=== PATIENT | female | born 1980 | race Caucasian/White ===

== ENCOUNTER 2016-11-08 15:01 | Emergency (ER) | payer OTHER ==
--- NOTE | 2016-11-08 15:44 | DIAGNOSTIC IMAGING REPORT ---
PROCEDURE: XR FOOT 3 VIEWS - LEFT INDICATION: TRAUMA/INJURY TECHNIQUE: Three views. COMPARISON: None. FINDINGS: There is soft tissue swelling over the dorsum of the foot. Osseous structures and joint spaces are normal. IMPRESSION: 1. Soft tissue swelling. Otherwise negative left foot.
--- NOTE | 2016-11-08 17:07 | ED ORDER SUMMARY ---
..... Patient: RAFFAELE SHAH OrderSheet [facility] VisitID: [id number] [address] [place] [address] 36y, F Registration Date/Time: 11/08/2016 ORDER SHEET Weight: 95.2 kg (stated) Allergies: Phenergan GENERAL ORDERS: Foot 3V Left Urgent (15:10 11/08/2016 EKoroleva P.A.-C) (15:20 LWhalen R.N.) MEDICATION ORDERS: Bupivacaine Injection 0.5 % (soln) (NOW, place at bedside, with syringes & needles) (15:10 11/08/2016 EKoroleva P.A.-C) (15:20 LWhalen R.N.) Percocet PO 5/325 mg (HIGH ALERT MEDICATION) (15:10 11/08/2016 EKoroleva P.A.-C) (15:20 LWhalen R.N.) Dilaudid IM 2 mg (HIGH ALERT MEDICATION, NOW) (16:23 11/08/2016 EKoroleva P.A.-C) (16:29 Umm R.N.) Zofran ODT PO 8 mg (NOW) (16:53 11/08/2016 EKoroleva P.A.-C) (Ack 16:55 Umm R.N.) (17:04 Umm R.N.) IV FLUIDS: ORDER SHEET NOTES: [Electronically signed by India Quick PCoreyACorey-C (18:57 11/08/2016)] [Electronically signed by Aixa Basurto R.N. (08:27 11/09/2016)] [Electronically locked/signed by Aixa Basurto R.N. (08:27 11/09/2016)]
--- NOTE | 2016-11-08 17:07 | ED CLINICAL REPORT ---
Clinical Report - Physicians/Mid Levels [facility] [address], [place] [address] 11/08/2016 15:02 [id number] Ar[facility]- By private vehicle. Historian- patient. HISTORY OF PRESENT ILLNESS Chief Complaint: Injury to the left foot. The injury happened just prior to arrival. The patient sustained a direct blow. (Patient while walking sustaining injury to her left foot, interdigitally, sustaining injury with a you would being embedded into her skin. Reports pain with ambulating. Reports mild bleeding of the time. Incident occurred just prior to arrival. She was tetanus musician up-to-date. NO prior injury to the area.). REVIEW OF SYSTEMS The patient complains of pain on weight bearing. She has had swelling. All systems otherwise negative, except as recorded above. PAST HISTORY The patient has not had a prior injury to the same area. Tetanus immunization status is up-to-date. Problems: Migraines . Anxiety Reaction. Additional Surgeries: Adenoidectomy. Exploratory laparotomy. Lithotripsy. Right shoulder . Tonsillectomy. Medications: Percocet Oral. CBD OIL. None. Allergies: Phenergan. SOCIAL HISTORY Never smoker. Alcohol use. History of drug use: marijuana. PHYSICAL EXAM Appearance: Anxious. Appears to be in pain. Patient in apparent distress. Head: Head atraumatic. CVS: Normal heart rate and rhythm. Heart sounds normal. Respiratory: No respiratory distress. Skin: Skin warm. Extremities: Left foot web space. (In the webspace between the third and fourth digit, there is an opening a laceration foreign body protruding, proximal to suction the webspace areas swallowing and tenderness and mild ecchymosis present. Good distal sensation of the digit is presentof the third and fourth and range of motion.). Extremities otherwise negative. Gait: Limping gait. Neuro, Vascular and Tendons: Vascular status intact. Motor intact. Neuro: Oriented X 3. LABS, X-RAYS, AND EKG Lt Foot X-ray: (IMPRESSION: 1. Soft tissue swelling. Otherwise negative left foot. Electronically Final signed by:Guanako Downing MD 11/08/2016 3:39:24 PM). PROGRESS AND PROCEDURES Course of Care: After opening and retracting the skin of the foreign object intrusion site, a large stick was removed, and appears to have wholly been removed, has significant improvement of symptoms. There is approximately 4-5 cm in length. Patient with no signs of complications secondary to sludge. Patient able to ambulate well. patient will heal by secondary intentions. No signs of osseous involvement. Patient started on antibiotics. No signs of neurovascular or tendon compromise. Good distal range of motion and sensation. Patient is stable. Patient/family counseled. Disposition: Discharged. Condition: good. CLINICAL IMPRESSION Removal of wooden soft tissue foreign body. Puncture wound and laceration present (Left inter-digit 3rd/4th). INSTRUCTIONS Protect wound and keep wound area clean. Apply bacitracin twice daily. Elevate affected areas above chest level. Prescription Medications: Zofran (orally disintegrating tablets) 4 mg: take 1 orally every 6 hours as needed for nausea. Dispense ten (10). No refill. Substitution is permissible. Cephalexin 500 mg: take 1 capsule orally every 8 hours for 7 days. No refill. Motrin 800 mg tablets: take 1 tablet orally every 6 hours for 5 days, as needed for pain. Dispense fifteen (15). No refill. Substitution is permissible. Percocet 5 mg/325 mg: take 1 tablet orally every 6 hours as needed for pain. Dispense ten (10). Substitution is permissible. OTC Medications: Take OTC medications according to label instructions. Available over the counter. Acetaminophen (available over the counter): take according to label instructions. Motrin (available over the counter): take according to label instructions. Follow-up with: Kris Queen DPM, Podiatry, , [facility], [address] [place] [address], [address], [place] [address] Follow up. Call for the next available appointment. (Electronically signed by India Quick P.A.-C 11/08/2016 18:57)
--- NOTE | 2016-11-08 17:07 | ED ORDER SUMMARY ---
..... Patient: RAFFAELE SHAH OrderSheet [facility] VisitID: [id number] [address] [place] [address] 36y, F Registration Date/Time: 11/08/2016 ORDER SHEET Weight: 95.2 kg (stated) Allergies: Phenergan GENERAL ORDERS: Foot 3V Left Urgent (15:10 11/08/2016 EKoroleva P.A.-C) (15:20 LWhalen R.N.) MEDICATION ORDERS: Bupivacaine Injection 0.5 % (soln) (NOW, place at bedside, with syringes & needles) (15:10 11/08/2016 EKoroleva P.A.-C) (15:20 LWhalen R.N.) Percocet PO 5/325 mg (HIGH ALERT MEDICATION) (15:10 11/08/2016 EKoroleva P.A.-C) (15:20 LWhalen R.N.) Dilaudid IM 2 mg (HIGH ALERT MEDICATION, NOW) (16:23 11/08/2016 EKoroleva P.A.-C) (16:29 Umm R.N.) Zofran ODT PO 8 mg (NOW) (16:53 11/08/2016 EKoroleva P.A.-C) (Ack 16:55 Umm R.N.) (17:04 Umm R.N.) IV FLUIDS: ORDER SHEET NOTES: [Electronically signed by India Quick PCoreyACorey-C (18:57 11/08/2016)] [Electronically signed by Aixa Basurto R.N. (08:27 11/09/2016)] [Electronically locked/signed by Aixa Basurto R.N. (08:27 11/09/2016)]
--- NOTE | 2016-11-08 17:07 | ED NURSING NOTES ---
Clinical Report - Nurses [facility] [address] [place] [address] 11/08/2016 15:02 [id number] Triage time 15:Nov 08 2016. Acuity: LEVEL 4. Chief Complaint: INJURY TO LEFT FOOT. JIE COMA SCORE: [place] Coma Scale: 15- eyes open spontaneously (4); best verbal response- oriented x 4 (5); best motor response- obeys commands (6). --15:16 Aixa Basurto R.N. 15:11 11/08/16. BP: 133/72. HR: 98. RR: 18. O2 saturation: 100%. Temp: 98.4 F. Pain level now 10/10. --15:16 Aixa Basurto R.N. Acuity: LEVEL 3. JIE COMA SCORE: Jie Coma Scale: 15- eyes open spontaneously (4); best verbal response- oriented x 4 (5); best motor response- obeys commands (6). --15:26 Aixa Basurto R.N. Weight: 95.2 kg stated. Height/Length: 70 inches Per Patient. BMI: 30.1. --15:15 Aixa Basurto R.N. Medications None. --15:13 Aixa Basurto R.N. CBD OIL. --15:14 Aixa Basurto R.N. Percocet Oral. --15:15 Aixa Basurto R.N. Allergies Phenergan. --15:13 Aixa Basurto R.N. History Arrived by private vehicle. Historian: patient. Accompanied by family. This occurred just prior to arrival. Occurred at a park. ( Was walking the dog and a stick went between 3 and 4th toes.). Treatment GRADE RECORDER: Ice. --15:16 Aixa Basurto R.N. PAST MEDICAL HX: No history of diabetes mellitus, hypertension, heart disease or lung disease. Tetanus status: up-to-date. Immunizations: up-to-date. Uses an intrauterine device. SOCIAL HX: Never smoker. Occasional alcohol use. History of drug use: marijuana. SELF HARM ASSESSMENT: A self harm assessment was performed. The patient answered "no" to the question "Have you recently felt down, depressed, or hopeless?" and "Do you have thoughts of harming or killing yourself?". FALL RISK ASSESSMENT: Fall risk assessment completed. No fall risk identified. NUTRITIONAL RISK ASSESSMENT: The nutritional risk assessment revealed no deficiencies. FUNCTIONAL ASSESSMENT: Functional assessment: no impairments noted. LEARNING NEEDS ASSESSMENT: The learning needs assessment revealed no barriers. ABUSE ASSESSMENT: Abuse assessment: (yes) The patient was asked "Do you feel safe in your home?". SKIN INTEGRITY ASSESSMENT: Skin integrity risk assessment completed. No skin integrity risk identified. --15:26 Aixa Basruto R.N. PROBLEMS: Migraines . Anxiety Reaction. --15:15 Aixa Basurto R.N. ADDITIONAL SURGERIES: Adenoidectomy. Exploratory laparotomy. Lithotripsy. Right shoulder . Tonsillectomy. --15:15 Aixa Basurto R.N. Interventions ID and allergy band on patient. --15:16 Aixa Basurto R.N. PHYSICAL ASSESSMENT To room via wheelchair. GENERAL / NEURO / PSYCH: Oriented X 4. Alert. Appears in no acute distress. EXTREMITIES: Capillary refill is less than 2 seconds in the extremities. Extremity pulses are within normal limits. Extremities exhibit normal ROM. Normal gait. Left foot: tenderness, swelling, erythema and single puncture wound of the fourth toe. Limited weight bearing secondary to pain. SKIN: Skin is warm and dry. --15:48 Aixa Basurto R.N. NURSING PROGRESS NOTES 15:20 11/08/2016 Percocet (Oxycodone-Acetaminophen) PO 5/325 mg Tablets 1 tab given. Allergies verified, confirmed 5 rights and sedative warning given to the patient. --15:20 Aixa Basurto R.N. 15:20 11/08/2016 Bupivacaine Injection Injectable 0.5 % given. --15:20 Aixa Basurto R.N. The initial plan of care for this patient includes an assessment with efforts to address patient positioning, appropriate ambient lighting and comfortable environmental temperature; impairment of the integumentary system. Patient gowned. Reassurance given. Call light placed in reach. Side rails up x 1. Bed placed in lowest position. Brakes of bed on. --15:49 Aixa Basurto R.N. 16:24 11/08/2016 Dilaudid (HYDROmorphone HCl PF) IM 2 mg given. Given in the right deltoid. Allergies verified, confirmed 5 rights and sedative warning given to the patient. --16:29 Susannah Gallego R.N. 17:03 assist with foreign body removal. --17:04 Susannah Gallego R.N. 16:59 11/08/2016 Zofran ODT (Ondansetron) PO Oral Disintegrating Tablets 8 mg given. Allergies verified and confirmed 5 rights. --17:04 Susannah Gallego R.N. 17:04. The patient is resting quietly. Overall patient status is improved- she states feels the same. GENERAL / NEURO / PSYCH: Alert. Oriented X 4. RESPIRATORY: No respiratory distress. SKIN: Skin is warm and dry. --17:05 Susannah Gallego R.N. DISPOSITION / DISCHARGE Condition at departure: improved. No learning barriers present. Discharge instructions provided and reviewed with the patient. Reviewed warnings. Reviewed medication(s). Treatments reviewed. Reviewed referrals. Patient verbalized understanding. Written instructions provided in Iraqi. The patient was discharged home and accompanied by spouse. She left the Emergency Department in a wheelchair and via private vehicle. Spouse driving. ( [employer] completed dressing change.). --17:31 Aixa Basurto R.N. 17:30 11/08/16. BP: 111/70. HR: 98. RR: 18. O2 saturation: 97%. Temp: 98.4 F. Pain level now 07/23. --17:31 Aixa Basurto R.N. ( Patient waiting for will call out when he arrives to be wheeled.). --17:45 Aixa Basurto R.N. Departure time: 18:00 Nov 08 2016. --18:00 Aixa Basurto R.N. Locked/Released at 11/09/2016 8:27 by Aixa Basurto R.N.
--- NOTE | 2016-11-08 17:07 | ED CLINICAL REPORT ---
Clinical Report - Physicians/Mid Levels [facility] [address] [address] 11/08/2016 15:02 Patient: [facility]AH [id number] Arrived- By private vehicle. Historian- patient. HISTORY OF PRESENT ILLNESS Chief Complaint: Injury to the left foot. The injury happened just prior to arrival. The patient sustained a direct blow. (Patient while walking sustaining injury to her left foot, interdigitally, sustaining injury with a you would being embedded into her skin. Reports pain with ambulating. Reports mild bleeding of the time. Incident occurred just prior to arrival. She was tetanus musician up-to-date. NO prior injury to the area.). REVIEW OF SYSTEMS The patient complains of pain on weight bearing. She has had swelling. All systems otherwise negative, except as recorded above. PAST HISTORY The patient has not had a prior injury to the same area. Tetanus immunization status is up-to-date. Problems: Migraines . Anxiety Reaction. Additional Surgeries: Adenoidectomy. Exploratory laparotomy. Lithotripsy. Right shoulder . Tonsillectomy. Medications: Percocet Oral. CBD OIL. None. Allergies: Phenergan. SOCIAL HISTORY Never smoker. Alcohol use. History of drug use: marijuana. PHYSICAL EXAM Appearance: Anxious. Appears to be in pain. Patient in apparent distress. Head: Head atraumatic. CVS: Normal heart rate and rhythm. Heart sounds normal. Respiratory: No respiratory distress. Skin: Skin warm. Extremities: Left foot web space. (In the webspace between the third and fourth digit, there is an opening a laceration foreign body protruding, proximal to suction the webspace areas swallowing and tenderness and mild ecchymosis present. Good distal sensation of the digit is presentof the third and fourth and range of motion.). Extremities otherwise negative. Gait: Limping gait. Neuro, Vascular and Tendons: Vascular status intact. Motor intact. Neuro: Oriented X 3. LABS, X-RAYS, AND EKG Lt Foot X-ray: (IMPRESSION: 1. Soft tissue swelling. Otherwise negative left foot. Electronically Final signed by:Guanako Downing MD 11/08/2016 3:39:24 PM). PROGRESS AND PROCEDURES Course of Care: After opening and retracting the skin of the foreign object intrusion site, a large stick was removed, and appears to have wholly been removed, has significant improvement of symptoms. There is approximately 4-5 cm in length. Patient with no signs of complications secondary to sludge. Patient able to ambulate well. patient will heal by secondary intentions. No signs of osseous involvement. Patient started on antibiotics. No signs of neurovascular or tendon compromise. Good distal range of motion and sensation. Patient is stable. Patient/family counseled. Disposition: Discharged. Condition: good. CLINICAL IMPRESSION Removal of wooden soft tissue foreign body. Puncture wound and laceration present (Left inter-digit 3rd/4th). INSTRUCTIONS Protect wound and keep wound area clean. Apply bacitracin twice daily. Elevate affected areas above chest level. Prescription Medications: Zofran (orally disintegrating tablets) 4 mg: take 1 orally every 6 hours as needed for nausea. Dispense ten (10). No refill. Substitution is permissible. Cephalexin 500 mg: take 1 capsule orally every 8 hours for 7 days. No refill. Motrin 800 mg tablets: take 1 tablet orally every 6 hours for 5 days, as needed for pain. Dispense fifteen (15). No refill. Substitution is permissible. Percocet 5 mg/325 mg: take 1 tablet orally every 6 hours as needed for pain. Dispense ten (10). Substitution is permissible. OTC Medications: Take OTC medications according to label instructions. Available over the counter. Acetaminophen (available over the counter): take according to label instructions. Motrin (available over the counter): take according to label instructions. Follow-up with: Kris Queen DPM, Podiatry, , [facility], [address] [place] [address], [address], [place] [address] Follow up. Call for the next available appointment. (Electronically signed by India Quick P.A.-C 11/08/2016 18:57)
--- NOTE | 2016-11-08 17:07 | ED NURSING NOTES ---
Clinical Report - Nurses [facility] [address] [place] [address] 11/08/2016 15:02 [id number] Triage time 15:Nov 08 2016. Acuity: LEVEL 4. Chief Complaint: INJURY TO LEFT FOOT. JIE COMA SCORE: [place] Coma Scale: 15- eyes open spontaneously (4); best verbal response- oriented x 4 (5); best motor response- obeys commands (6). --15:16 Aixa Basurto R.N. 15:11 11/08/16. BP: 133/72. HR: 98. RR: 18. O2 saturation: 100%. Temp: 98.4 F. Pain level now 10/10. --15:16 Aixa Basurto R.N. Acuity: LEVEL 3. JIE COMA SCORE: Jie Coma Scale: 15- eyes open spontaneously (4); best verbal response- oriented x 4 (5); best motor response- obeys commands (6). --15:26 Aixa Basurto R.N. Weight: 95.2 kg stated. Height/Length: 70 inches Per Patient. BMI: 30.1. --15:15 Aixa Basurto R.N. Medications None. --15:13 Aixa Basurto R.N. CBD OIL. --15:14 Aixa Basurto R.N. Percocet Oral. --15:15 Aixa Basurto R.N. Allergies Phenergan. --15:13 Aixa Basurto R.N. History Arrived by private vehicle. Historian: patient. Accompanied by family. This occurred just prior to arrival. Occurred at a park. ( Was walking the dog and a stick went between 3 and 4th toes.). Treatment [employer]: Ice. --15:16 Aixa Basurto R.N. PAST MEDICAL HX: No history of diabetes mellitus, hypertension, heart disease or lung disease. Tetanus status: up-to-date. Immunizations: up-to-date. Uses an intrauterine device. SOCIAL HX: Never smoker. Occasional alcohol use. History of drug use: marijuana. SELF HARM ASSESSMENT: A self harm assessment was performed. The patient answered "no" to the question "Have you recently felt down, depressed, or hopeless?" and "Do you have thoughts of harming or killing yourself?". FALL RISK ASSESSMENT: Fall risk assessment completed. No fall risk identified. NUTRITIONAL RISK ASSESSMENT: The nutritional risk assessment revealed no deficiencies. FUNCTIONAL ASSESSMENT: Functional assessment: no impairments noted. LEARNING NEEDS ASSESSMENT: The learning needs assessment revealed no barriers. ABUSE ASSESSMENT: Abuse assessment: (yes) The patient was asked "Do you feel safe in your home?". SKIN INTEGRITY ASSESSMENT: Skin integrity risk assessment completed. No skin integrity risk identified. --15:26 Aixa Basurto R.N. PROBLEMS: Migraines . Anxiety Reaction. --15:15 Aixa Basurto R.N. ADDITIONAL SURGERIES: Adenoidectomy. Exploratory laparotomy. Lithotripsy. Right shoulder . Tonsillectomy. --15:15 Aixa Basurto R.N. Interventions ID and allergy band on patient. --15:16 Aixa Basurto R.N. PHYSICAL ASSESSMENT To room via wheelchair. GENERAL / NEURO / PSYCH: Oriented X 4. Alert. Appears in no acute distress. EXTREMITIES: Capillary refill is less than 2 seconds in the extremities. Extremity pulses are within normal limits. Extremities exhibit normal ROM. Normal gait. Left foot: tenderness, swelling, erythema and single puncture wound of the fourth toe. Limited weight bearing secondary to pain. SKIN: Skin is warm and dry. --15:48 Aixa Basurto R.N. NURSING PROGRESS NOTES 15:20 11/08/2016 Percocet (Oxycodone-Acetaminophen) PO 5/325 mg Tablets 1 tab given. Allergies verified, confirmed 5 rights and sedative warning given to the patient. --15:20 Aixa Basurto R.N. 15:20 11/08/2016 Bupivacaine Injection Injectable 0.5 % given. --15:20 Aixa Basurto R.N. The initial plan of care for this patient includes an assessment with efforts to address patient positioning, appropriate ambient lighting and comfortable environmental temperature; impairment of the integumentary system. Patient gowned. Reassurance given. Call light placed in reach. Side rails up x 1. Bed placed in lowest position. Brakes of bed on. --15:49 Aixa Basurto R.N. 16:24 11/08/2016 Dilaudid (HYDROmorphone HCl PF) IM 2 mg given. Given in the right deltoid. Allergies verified, confirmed 5 rights and sedative warning given to the patient. --16:29 Susannah Gallego R.N. 17:03 assist with foreign body removal. --17:04 Susannah Gallego R.N. 16:59 11/08/2016 Zofran ODT (Ondansetron) PO Oral Disintegrating Tablets 8 mg given. Allergies verified and confirmed 5 rights. --17:04 Susannah Gallego R.N. 17:04. The patient is resting quietly. Overall patient status is improved- she states feels the same. GENERAL / NEURO / PSYCH: Alert. Oriented X 4. RESPIRATORY: No respiratory distress. SKIN: Skin is warm and dry. --17:05 Susannah Gallego R.N. DISPOSITION / DISCHARGE Condition at departure: improved. No learning barriers present. Discharge instructions provided and reviewed with the patient. Reviewed warnings. Reviewed medication(s). Treatments reviewed. Reviewed referrals. Patient verbalized understanding. Written instructions provided in Omani. The patient was discharged home and accompanied by spouse. She left the Emergency Department in a wheelchair and via private vehicle. Spouse driving. ( [employer] completed dressing change.). --17:31 Aixa Basurto R.N. 17:30 11/08/16. BP: 111/70. HR: 98. RR: 18. O2 saturation: 97%. Temp: 98.4 F. Pain level now 07/23. --17:31 Aixa Basurto R.N. ( Patient waiting for will call out when he arrives to be wheeled.). --17:45 Aixa Basurto R.N. Departure time: 18:00 Nov 08 2016. --18:00 Aixa Basurto R.N. Locked/Released at 11/09/2016 8:27 by Aixa Basurto R.N.
--- NOTE | 2016-11-09 08:28 | ED MAR SUMMARY ---
..... Medication Administration Record [facility] [address] [place] [address] Patient: RAFFAELE SHAH Visit ID: [id number] 36y, F Weight: 95.2 kg Height/Length: 70 in BMI: 30.1 ALLERGIES: Phenergan Given 15:20 11/08/2016 Aixa Basurto R.N. Medication Administered: BUPIVACAINE [INJECTION], Dose: 0.5 % Injectable Injection. Medication Ordered: Bupivacaine Injection 0.5 % (soln) (NOW, place at bedside, with syringes & needles). Given 15:20 11/08/2016 Aixa Basurto R.N. Medication Administered: PERCOCET [PO] (OXYCODONE-ACETAMINOPHEN), Dose: 1 tab 5/325 mg Tablets PO. Medication Ordered: Percocet PO 5/325 mg (HIGH ALERT MEDICATION). Given 16:24 11/08/2016 Susannah Gallego R.N. Medication Administered: DILAUDID [IM] (HYDROMORPHONE HCL PF), Dose: 2 mg IM. Medication Ordered: Dilaudid IM 2 mg (HIGH ALERT MEDICATION, NOW). Given 16:59 11/08/2016 Susannah Gallego R.N. Medication Administered: ZOFRAN ODT [PO] (ONDANSETRON), Dose: 8 mg Oral Disintegrating Tablets PO. Medication Ordered: Zofran ODT PO 8 mg (NOW).
--- NOTE | 2016-11-09 08:28 | ED MED RECONCILIATION SUMMARY ---
Patient: RAFFAELE SHAH Medication Reconciliation Report [facility] VisitID: [id number] [place] [address] 36y, F Registration Date/Time: 11/08/2016 Weight: 95.2 kg Height/Length: 70 in. BMI: 30.1 ALLERGIES: Phenergan The patient's Home Medications are listed below: THE FOLLOWING MEDICATIONS NEED TO BE RECONCILED: CBD OIL Percocet Oral The source(s) of the original Home Medication information: Not obtained. The following Medications were given to the patient in the Emergency Department: Percocet [PO] PO 1 tab, administered: 11/08/2016 3:20:00 PM Bupivacaine [Injection] Injection 0.5 %, administered: 11/08/2016 3:20:00 PM Dilaudid [IM] IM 2 mg, administered: 11/08/2016 4:24:00 PM Zofran ODT [PO] PO 8 mg, administered: 11/08/2016 4:59:00 PM The following Medications were prescribed to the patient: Take OTC medications according to label instructions. Available over the counter. -- Koroleva, [place], P.A.-C Acetaminophen (available over the counter): take according to label instructions. -- Kor[facility]va, [place], P.A.-C Motrin (available over the counter): take according to label instructions. -- Koroleva, Nidia, P.A.-C Zofran (orally disintegrating tablets) 4 mg: take 1 orally every 6 hours as needed for nausea. Dispense ten (10). No refill. Substitution is permissible. -- Koroleva, [place], P.A.-C Cephalexin 500 mg: take 1 capsule orally every 8 hours for 7 days. No refill. -- Koroleva, [place], P.A.-C Motrin 800 mg tablets: take 1 tablet orally every 6 hours for 5 days, as needed for pain. Dispense fifteen (15). No refill. Substitution is permissible. -- Koroleva, [place], P.A.-C Percocet 5 mg/325 mg: take 1 tablet orally every 6 hours as needed for pain. Dispense ten (10). Substitution is permissible. -- [place] Quick P.A.-C
--- NOTE | 2016-11-09 08:28 | ED DISCHARGE INSTRUCTIONS ---
Patient: RAFFAELE SHAH General Instructions [facility] VisitID: [id number] [place], [place] [address] 36y, F Registration Date/Time: 11/08/2016 Removal of wooden soft tissue foreign body. Puncture wound and laceration present (Left inter-digit 3rd/4th). INSTRUCTIONS Protect wound and keep wound area clean. Apply bacitracin twice daily. Elevate affected areas above chest level. Prescription Medications: Zofran (orally disintegrating tablets) 4 mg: take 1 orally every 6 hours as needed for nausea. Dispense ten (10). No refill. Substitution is permissible. Cephalexin 500 mg: take 1 capsule orally every 8 hours for 7 days. No refill. Motrin 800 mg tablets: take 1 tablet orally every 6 hours for 5 days, as needed for pain. Dispense fifteen (15). No refill. Substitution is permissible. Percocet 5 mg/325 mg: take 1 tablet orally every 6 hours as needed for pain. Dispense ten (10). Substitution is permissible. OTC Medications: Take OTC medications according to label instructions. Available over the counter. Acetaminophen (available over the counter): take according to label instructions. Motrin (available over the counter): take according to label instructions. Follow-up with: Kris Queen DPM, Podiatry, , [facility], [address] [place] [address], [address] [address] Follow up. Call for the next available appointment. ADDITIONAL INFORMATION Foreign ObjectUnder The Skin, Removed An object has been removed from under your skin. Although care was taken to remove all particles present, there is always a chance that a small piece may have been left behind. Very small particles that remain under the skin usually cause no problem and need no further treatment. Home care The following guidelines will help you care for your wound at home: Keep the wound clean and dry. If a bandage was applied and it becomes wet or dirty, replace it. Otherwise, leave it in place for the first 24 hours, then change it once a day or as directed. Ifsutureswere used, clean the wound daily: After removing the bandage, wash the area with soap and water. After cleaning, apply a thin layer of antibiotic ointment. This will keep the wound clean and make it easier to remove the stitches. Reapply the bandage. You may shower as usual after the first 24 hours, but do not soak the area in water (no baths or swimming) until the sutures are removed. If asurgical tape closureswere used, keep the area clean and dry. If it becomes wet, blot it dry with a towel. You may use acetaminophen or ibuprofen to control pain, unless another pain medicine was prescribed.If you have chronic liver or kidney disease or ever had a stomach ulcer or GI bleeding, talk with your doctor before using these medicines. Follow-up care Most skin wounds heal within ten days. However, there is an increased risk of infection if there is any particle remaining under the skin. Therefore, check the wound daily for the signs listed below. Stitches should be removed within 714 days. If surgical tape closures were used, remove them after seven days unless told otherwise. Note:Any X-rays taken will be reviewed by a radiologist. You will be notified if there are new findings that may affect your care. When to seek medical care Get prompt medical attention if any of the following occur: Increasing pain in the wound Redness, swelling or pus coming from the wound Fever of 100.4F (38C) or higher, or as directed by your health care provider Ondansetron Hydrochloride Oral tablet What is this medicine? ONDANSETRON (on OJ se juan) is used to treat nausea and vomiting caused by chemotherapy. It is also used to prevent or treat nausea and vomiting after surgery. How should I use this medicine? Take this medicine by mouth with a glass of water. Follow the directions on your prescription label. Take your doses at regular intervals. Do not take your medicine more often than directed. Talk to your tankerman regarding the use of this medicine in children. Special care may be needed. What side effects may I notice from receiving this medicine? Side effects that you should report to your doctor or health child care supervisor as soon as possible: allergic reactions like skin rash, itching or hives, swelling of the face, lips or tongue breathing problems dizziness fast or irregular heartbeat feeling faint or lightheaded, falls fever and chills swelling of the hands or feet tightness in the chest Side effects that usually do not require medical attention (report to your doctor or health child care supervisor if they continue or are bothersome): constipation or diarrhea headache What may interact with this medicine? Do not take this medicine with any of the following medications: -apomorphine -cisapride -dofetilide -dronedarone -pimozide -thioridazine -ziprasidone This medicine may also interact with the following medications: -carbamazepine -phenytoin -rifampicin -tramadol -other medicines that prolong the QT interval (cause an abnormal heart rhythm) What if I miss a dose? If you miss a dose, take it as soon as you can. If it is almost time for your next dose, take only that dose. Do not take double or extra doses. Where should I keep my medicine? Keep out of the reach of children. Store between 2 and 30 degrees C (36 and 86 degrees F). Throw away any unused medicine after the expiration date. What should I tell my health care provider before I take this medicine? They need to know if you have any of these conditions: heart disease history of irregular heartbeat liver disease low levels of magnesium or potassium in the blood an unusual or allergic reaction to ondansetron, granisetron, other medicines, foods, dyes, or preservatives or trying to get breast-feeding What should I watch for while using this medicine? Check with your doctor or health child care supervisor right away if you have any sign of an allergic reaction. Cephalexin Monohydrate Oral tablet What is this medicine? CEPHALEXIN (sef a RODGER in) is a cephalosporin antibiotic. It is used to treat certain kinds of bacterial infections It will not work for colds, flu, or other viral infections. How should I use this medicine? Take this medicine by mouth with a full glass of water. Follow the directions on the prescription label. This medicine can be taken with or without food. Take your medicine at regular intervals. Do not take your medicine more often than directed. Take all of your medicine as directed even if you think you are better. Do not skip doses or stop your medicine early. Talk to your tankerman regarding the use of this medicine in children. While this drug may be prescribed for selected conditions, precautions do apply. What side effects may I notice from receiving this medicine? Side effects that you should report to your doctor or health child care supervisor as soon as possible: allergic reactions like skin rash, itching or hives, swelling of the face, lips, or tongue breathing problems pain or trouble passing urine redness, blistering, peeling or loosening of the skin, including inside the mouth severe or watery diarrhea unusually weak or tired yellowing of the eyes, skin Side effects that usually do not require medical attention (report to your doctor or health child care supervisor if they continue or are bothersome): gas or heartburn genital or anal irritation headache joint or muscle pain nausea, vomiting What may interact with this medicine? probenecid some other antibiotics What if I miss a dose? If you miss a dose, take it as soon as you can. If it is almost time for your next dose, take only that dose. Do not take double or extra doses. There should be at least 4 to 6 hours between doses. Where should I keep my medicine? Keep out of the reach of children. Store at room temperature between 59 and 86 degrees F (15 and 30 degrees C). Throw away any unused medicine after the expiration date. What should I tell my health care provider before I take this medicine? They need to know if you have any of these conditions: kidney disease stomach or intestine problems, especially colitis an unusual or allergic reaction to cephalexin, other cephalosporins, penicillins, other antibiotics, medicines, foods, dyes or preservatives or trying to get breast-feeding What should I watch for while using this medicine? Tell your doctor or health child care supervisor if your symptoms do not begin to improve in a few days. Do not treat diarrhea with over the counter products. Contact your doctor if you have diarrhea that lasts more than 2 days or if it is severe and watery. If you have diabetes, you may get a false-positive result for sugar in your urine. Check with your doctor or health child care supervisor. Oxycodone Hydrochloride, Acetaminophen Oral tablet What is this medicine? ACETAMINOPHEN; OXYCODONE (a set a OTONIEL aziza fen; ox i KOE done) is a pain reliever. It is used to treat mild to moderate pain. How should I use this medicine? Take this medicine by mouth with a full glass of water. Follow the directions on the prescription label. Take your medicine at regular intervals. Do not take your medicine more often than directed. Talk to your tankerman regarding the use of this medicine in children. Special care may be needed. Patients over 65 years old may have a stronger reaction and need a smaller dose. What side effects may I notice from receiving this medicine? Side effects that you should report to your doctor or health child care supervisor as soon as possible: allergic reactions like skin rash, itching or hives, swelling of the face, lips, or tongue breathing difficulties, wheezing confusion light headedness or fainting spells severe stomach pain yellowing of the skin or the whites of the eyes Side effects that usually do not require medical attention (report to your doctor or health child care supervisor if they continue or are bothersome): dizziness drowsiness nausea vomiting What may interact with this medicine? alcohol antihistamines barbiturates like amobarbital, butalbital, butabarbital, methohexital, pentobarbital, phenobarbital, thiopental, and secobarbital benztropine drugs for bladder problems like solifenacin, trospium, oxybutynin, tolterodine, hyoscyamine, and methscopolamine drugs for breathing problems like ipratropium and tiotropium drugs for certain stomach or intestine problems like propantheline, homatropine methylbromide, glycopyrrolate, atropine, belladonna, and dicyclomine general anesthetics like etomidate, ketamine, nitrous oxide, propofol, desflurane, enflurane, halothane, isoflurane, and sevoflurane medicines for depression, anxiety, or psychotic disturbances medicines for sleep muscle relaxants naltrexone narcotic medicines (opiates) for pain phenothiazines like perphenazine, thioridazine, chlorpromazine, mesoridazine, fluphenazine, prochlorperazine, promazine, and trifluoperazine scopolamine tramadol trihexyphenidyl What if I miss a dose? If you miss a dose, take it as soon as you can. If it is almost time for your next dose, take only that dose. Do not take double or extra doses. Where should I keep my medicine? Keep out of the reach of children. This medicine can be abused. Keep your medicine in a safe place to protect it from theft. Do not share this medicine with anyone. Selling or giving away this medicine is dangerous and against the law. Store at room temperature between 20 and 25 degrees C (68 and 77 degrees F). Keep container tightly closed. Protect from light. This medicine may cause accidental overdose and if it is taken by other adults, children, or pets. Flush any unused medicine down the toilet to reduce the chance of harm. Do not use the medicine after the expiration date. What should I tell my health care provider before I take this medicine? They need to know if you have any of these conditions: brain tumor Crohn's disease, inflammatory bowel disease, or ulcerative colitis drink more than 3 alcohol containing drinks per day drug abuse or addiction head injury heart or circulation problems kidney disease or problems going to the bathroom liver disease lung disease, asthma, or breathing problems an unusual or allergic reaction to acetaminophen, oxycodone, other opioid analgesics, other medicines, foods, dyes, or preservatives or trying to get breast-feeding What should I watch for while using this medicine? Tell your doctor or health child care supervisor if your pain does not go away, if it gets worse, or if you have new or a different type of pain. You may develop tolerance to the medicine. Tolerance means that you will need a higher dose of the medication for pain relief. Tolerance is normal and is expected if you take this medicine for a long time. Do not suddenly stop taking your medicine because you may develop a severe reaction. Your body becomes used to the medicine. This does NOT mean you are addicted. Addiction is a behavior related to getting and using a drug for a non-medical reason. If you have pain, you have a medical reason to take pain medicine. Your doctor will tell you how much medicine to take. If your doctor wants you to stop the medicine, the dose will be slowly lowered over time to avoid any side effects. You may get drowsy or dizzy. Do not drive, use machinery, or do anything that needs mental alertness until you know how this medicine affects you. Do not stand or sit up quickly, especially if you are an older patient. This reduces the risk of dizzy or fainting spells. Alcohol may interfere with the effect of this medicine. Avoid alcoholic drinks. There are different types of narcotic medicines (opiates) for pain. If you take more than one type at the same time, you may have more side effects. Give your health care provider a list of all medicines you use. Your doctor will tell you how much medicine to take. Do not take more medicine than directed. Call emergency for help if you have problems breathing. The medicine will cause constipation. Try to have a bowel movement at least every 2 to 3 days. If you do not have a bowel movement for 3 days, call your doctor or health child care supervisor. Do not take Tylenol (acetaminophen) or medicines that have acetaminophen with this medicine. Too much acetaminophen can be very dangerous. Many nonprescription medicines contain acetaminophen. Always read the labels carefully to avoid taking more acetaminophen. You have been given the following additional information: Foreign Body, Soft Tissue (Removed) Ondansetron Hydrochloride Oral tablet Cephalexin Monohydrate Oral tablet Oxycodone Hydrochloride, Acetaminophen Oral tablet (Electronically signed by [place] Quick P.A.-C 11/08/2016 18:57)
--- NOTE | 2016-11-09 08:28 | ED DISCHARGE INSTRUCTIONS ---
Patient: RAFFAELE SHAH General Instructions Located Within [facility] VisitID: [id number] [place], [place] [address] 36y, F Registration Date/Time: 11/08/2016 Removal of wooden soft tissue foreign body. Puncture wound and laceration present (Left inter-digit 3rd/4th). INSTRUCTIONS Protect wound and keep wound area clean. Apply bacitracin twice daily. Elevate affected areas above chest level. Prescription Medications: Zofran (orally disintegrating tablets) 4 mg: take 1 orally every 6 hours as needed for nausea. Dispense ten (10). No refill. Substitution is permissible. Cephalexin 500 mg: take 1 capsule orally every 8 hours for 7 days. No refill. Motrin 800 mg tablets: take 1 tablet orally every 6 hours for 5 days, as needed for pain. Dispense fifteen (15). No refill. Substitution is permissible. Percocet 5 mg/325 mg: take 1 tablet orally every 6 hours as needed for pain. Dispense ten (10). Substitution is permissible. OTC Medications: Take OTC medications according to label instructions. Available over the counter. Acetaminophen (available over the counter): take according to label instructions. Motrin (available over the counter): take according to label instructions. Follow-up with: Kris Queen DPM, Podiatry, , [facility], [address] [place] [address], [address] [address] Follow up. Call for the next available appointment. ADDITIONAL INFORMATION Foreign ObjectUnder The Skin, Removed An object has been removed from under your skin. Although care was taken to remove all particles present, there is always a chance that a small piece may have been left behind. Very small particles that remain under the skin usually cause no problem and need no further treatment. Home care The following guidelines will help you care for your wound at home: Keep the wound clean and dry. If a bandage was applied and it becomes wet or dirty, replace it. Otherwise, leave it in place for the first 24 hours, then change it once a day or as directed. Ifsutureswere used, clean the wound daily: After removing the bandage, wash the area with soap and water. After cleaning, apply a thin layer of antibiotic ointment. This will keep the wound clean and make it easier to remove the stitches. Reapply the bandage. You may shower as usual after the first 24 hours, but do not soak the area in water (no baths or swimming) until the sutures are removed. If asurgical tape closureswere used, keep the area clean and dry. If it becomes wet, blot it dry with a towel. You may use acetaminophen or ibuprofen to control pain, unless another pain medicine was prescribed.If you have chronic liver or kidney disease or ever had a stomach ulcer or GI bleeding, talk with your doctor before using these medicines. Follow-up care Most skin wounds heal within ten days. However, there is an increased risk of infection if there is any particle remaining under the skin. Therefore, check the wound daily for the signs listed below. Stitches should be removed within 714 days. If surgical tape closures were used, remove them after seven days unless told otherwise. Note:Any X-rays taken will be reviewed by a radiologist. You will be notified if there are new findings that may affect your care. When to seek medical care Get prompt medical attention if any of the following occur: Increasing pain in the wound Redness, swelling or pus coming from the wound Fever of 100.4F (38C) or higher, or as directed by your health care provider Ondansetron Hydrochloride Oral tablet What is this medicine? ONDANSETRON (on OJ se juan) is used to treat nausea and vomiting caused by chemotherapy. It is also used to prevent or treat nausea and vomiting after surgery. How should I use this medicine? Take this medicine by mouth with a glass of water. Follow the directions on your prescription label. Take your doses at regular intervals. Do not take your medicine more often than directed. Talk to your comfort station supervisor regarding the use of this medicine in children. Special care may be needed. What side effects may I notice from receiving this medicine? Side effects that you should report to your doctor or health healthcare receptionist as soon as possible: allergic reactions like skin rash, itching or hives, swelling of the face, lips or tongue breathing problems dizziness fast or irregular heartbeat feeling faint or lightheaded, falls fever and chills swelling of the hands or feet tightness in the chest Side effects that usually do not require medical attention (report to your doctor or health healthcare receptionist if they continue or are bothersome): constipation or diarrhea headache What may interact with this medicine? Do not take this medicine with any of the following medications: -apomorphine -cisapride -dofetilide -dronedarone -pimozide -thioridazine -ziprasidone This medicine may also interact with the following medications: -carbamazepine -phenytoin -rifampicin -tramadol -other medicines that prolong the QT interval (cause an abnormal heart rhythm) What if I miss a dose? If you miss a dose, take it as soon as you can. If it is almost time for your next dose, take only that dose. Do not take double or extra doses. Where should I keep my medicine? Keep out of the reach of children. Store between 2 and 30 degrees C (36 and 86 degrees F). Throw away any unused medicine after the expiration date. What should I tell my health care provider before I take this medicine? They need to know if you have any of these conditions: heart disease history of irregular heartbeat liver disease low levels of magnesium or potassium in the blood an unusual or allergic reaction to ondansetron, granisetron, other medicines, foods, dyes, or preservatives or trying to get breast-feeding What should I watch for while using this medicine? Check with your doctor or health healthcare receptionist right away if you have any sign of an allergic reaction. Cephalexin Monohydrate Oral tablet What is this medicine? CEPHALEXIN (sef a RODGER in) is a cephalosporin antibiotic. It is used to treat certain kinds of bacterial infections It will not work for colds, flu, or other viral infections. How should I use this medicine? Take this medicine by mouth with a full glass of water. Follow the directions on the prescription label. This medicine can be taken with or without food. Take your medicine at regular intervals. Do not take your medicine more often than directed. Take all of your medicine as directed even if you think you are better. Do not skip doses or stop your medicine early. Talk to your comfort station supervisor regarding the use of this medicine in children. While this drug may be prescribed for selected conditions, precautions do apply. What side effects may I notice from receiving this medicine? Side effects that you should report to your doctor or health healthcare receptionist as soon as possible: allergic reactions like skin rash, itching or hives, swelling of the face, lips, or tongue breathing problems pain or trouble passing urine redness, blistering, peeling or loosening of the skin, including inside the mouth severe or watery diarrhea unusually weak or tired yellowing of the eyes, skin Side effects that usually do not require medical attention (report to your doctor or health healthcare receptionist if they continue or are bothersome): gas or heartburn genital or anal irritation headache joint or muscle pain nausea, vomiting What may interact with this medicine? probenecid some other antibiotics What if I miss a dose? If you miss a dose, take it as soon as you can. If it is almost time for your next dose, take only that dose. Do not take double or extra doses. There should be at least 4 to 6 hours between doses. Where should I keep my medicine? Keep out of the reach of children. Store at room temperature between 59 and 86 degrees F (15 and 30 degrees C). Throw away any unused medicine after the expiration date. What should I tell my health care provider before I take this medicine? They need to know if you have any of these conditions: kidney disease stomach or intestine problems, especially colitis an unusual or allergic reaction to cephalexin, other cephalosporins, penicillins, other antibiotics, medicines, foods, dyes or preservatives or trying to get breast-feeding What should I watch for while using this medicine? Tell your doctor or health healthcare receptionist if your symptoms do not begin to improve in a few days. Do not treat diarrhea with over the counter products. Contact your doctor if you have diarrhea that lasts more than 2 days or if it is severe and watery. If you have diabetes, you may get a false-positive result for sugar in your urine. Check with your doctor or health healthcare receptionist. Oxycodone Hydrochloride, Acetaminophen Oral tablet What is this medicine? ACETAMINOPHEN; OXYCODONE (a set a OTONIEL aziza fen; ox i KOE done) is a pain reliever. It is used to treat mild to moderate pain. How should I use this medicine? Take this medicine by mouth with a full glass of water. Follow the directions on the prescription label. Take your medicine at regular intervals. Do not take your medicine more often than directed. Talk to your comfort station supervisor regarding the use of this medicine in children. Special care may be needed. Patients over 65 years old may have a stronger reaction and need a smaller dose. What side effects may I notice from receiving this medicine? Side effects that you should report to your doctor or health healthcare receptionist as soon as possible: allergic reactions like skin rash, itching or hives, swelling of the face, lips, or tongue breathing difficulties, wheezing confusion light headedness or fainting spells severe stomach pain yellowing of the skin or the whites of the eyes Side effects that usually do not require medical attention (report to your doctor or health healthcare receptionist if they continue or are bothersome): dizziness drowsiness nausea vomiting What may interact with this medicine? alcohol antihistamines barbiturates like amobarbital, butalbital, butabarbital, methohexital, pentobarbital, phenobarbital, thiopental, and secobarbital benztropine drugs for bladder problems like solifenacin, trospium, oxybutynin, tolterodine, hyoscyamine, and methscopolamine drugs for breathing problems like ipratropium and tiotropium drugs for certain stomach or intestine problems like propantheline, homatropine methylbromide, glycopyrrolate, atropine, belladonna, and dicyclomine general anesthetics like etomidate, ketamine, nitrous oxide, propofol, desflurane, enflurane, halothane, isoflurane, and sevoflurane medicines for depression, anxiety, or psychotic disturbances medicines for sleep muscle relaxants naltrexone narcotic medicines (opiates) for pain phenothiazines like perphenazine, thioridazine, chlorpromazine, mesoridazine, fluphenazine, prochlorperazine, promazine, and trifluoperazine scopolamine tramadol trihexyphenidyl What if I miss a dose? If you miss a dose, take it as soon as you can. If it is almost time for your next dose, take only that dose. Do not take double or extra doses. Where should I keep my medicine? Keep out of the reach of children. This medicine can be abused. Keep your medicine in a safe place to protect it from theft. Do not share this medicine with anyone. Selling or giving away this medicine is dangerous and against the law. Store at room temperature between 20 and 25 degrees C (68 and 77 degrees F). Keep container tightly closed. Protect from light. This medicine may cause accidental overdose and if it is taken by other adults, children, or pets. Flush any unused medicine down the toilet to reduce the chance of harm. Do not use the medicine after the expiration date. What should I tell my health care provider before I take this medicine? They need to know if you have any of these conditions: brain tumor Crohn's disease, inflammatory bowel disease, or ulcerative colitis drink more than 3 alcohol containing drinks per day drug abuse or addiction head injury heart or circulation problems kidney disease or problems going to the bathroom liver disease lung disease, asthma, or breathing problems an unusual or allergic reaction to acetaminophen, oxycodone, other opioid analgesics, other medicines, foods, dyes, or preservatives or trying to get breast-feeding What should I watch for while using this medicine? Tell your doctor or health healthcare receptionist if your pain does not go away, if it gets worse, or if you have new or a different type of pain. You may develop tolerance to the medicine. Tolerance means that you will need a higher dose of the medication for pain relief. Tolerance is normal and is expected if you take this medicine for a long time. Do not suddenly stop taking your medicine because you may develop a severe reaction. Your body becomes used to the medicine. This does NOT mean you are addicted. Addiction is a behavior related to getting and using a drug for a non-medical reason. If you have pain, you have a medical reason to take pain medicine. Your doctor will tell you how much medicine to take. If your doctor wants you to stop the medicine, the dose will be slowly lowered over time to avoid any side effects. You may get drowsy or dizzy. Do not drive, use machinery, or do anything that needs mental alertness until you know how this medicine affects you. Do not stand or sit up quickly, especially if you are an older patient. This reduces the risk of dizzy or fainting spells. Alcohol may interfere with the effect of this medicine. Avoid alcoholic drinks. There are different types of narcotic medicines (opiates) for pain. If you take more than one type at the same time, you may have more side effects. Give your health care provider a list of all medicines you use. Your doctor will tell you how much medicine to take. Do not take more medicine than directed. Call emergency for help if you have problems breathing. The medicine will cause constipation. Try to have a bowel movement at least every 2 to 3 days. If you do not have a bowel movement for 3 days, call your doctor or health healthcare receptionist. Do not take Tylenol (acetaminophen) or medicines that have acetaminophen with this medicine. Too much acetaminophen can be very dangerous. Many nonprescription medicines contain acetaminophen. Always read the labels carefully to avoid taking more acetaminophen. You have been given the following additional information: Foreign Body, Soft Tissue (Removed) Ondansetron Hydrochloride Oral tablet Cephalexin Monohydrate Oral tablet Oxycodone Hydrochloride, Acetaminophen Oral tablet (Electronically signed by [place] Quick P.A.-C 11/08/2016 18:57)
--- NOTE | 2016-11-09 08:28 | ED MED RECONCILIATION SUMMARY ---
Patient: RAFFAELE SHAH Medication Reconciliation Report [facility] VisitID: [id number] [address] [place] [address] 36y, F Registration Date/Time: 11/08/2016 Weight: 95.2 kg Height/Length: 70 in. BMI: 30.1 ALLERGIES: Phenergan The patient's Home Medications are listed below: THE FOLLOWING MEDICATIONS NEED TO BE RECONCILED: CBD OIL Percocet Oral The source(s) of the original Home Medication information: Not obtained. The following Medications were given to the patient in the Emergency Department: Percocet [PO] PO 1 tab, administered: 11/08/2016 3:20:00 PM Bupivacaine [Injection] Injection 0.5 %, administered: 11/08/2016 3:20:00 PM Dilaudid [IM] IM 2 mg, administered: 11/08/2016 4:24:00 PM Zofran ODT [PO] PO 8 mg, administered: 11/08/2016 4:59:00 PM The following Medications were prescribed to the patient: Take OTC medications according to label instructions. Available over the counter. -- Koroleva, [place], P.A.-C Acetaminophen (available over the counter): take according to label instructions. -- Koroleva, [place], P.A.-C Motrin (available over the counter): take according to label instructions. -- Koroleva, [place], P.A.-C Zofran (orally disintegrating tablets) 4 mg: take 1 orally every 6 hours as needed for nausea. Dispense ten (10). No refill. Substitution is permissible. -- Koroleva, [place], P.A.-C Cephalexin 500 mg: take 1 capsule orally every 8 hours for 7 days. No refill. -- Koroleva, [place], P.A.-C Motrin 800 mg tablets: take 1 tablet orally every 6 hours for 5 days, as needed for pain. Dispense fifteen (15). No refill. Substitution is permissible. -- Koroleva, [place], P.A.-C Percocet 5 mg/325 mg: take 1 tablet orally every 6 hours as needed for pain. Dispense ten (10). Substitution is permissible. -- [place] Quick P.A.-C
--- NOTE | 2016-11-09 08:28 | ED MAR SUMMARY ---
..... Medication Administration Record [facility] [address] [place] [address] Patient: RAFFAELE SHAH Visit ID: [id number] 36y, F Weight: 95.2 kg Height/Length: 70 in BMI: 30.1 ALLERGIES: Phenergan Given 15:20 11/08/2016 Aixa Basurto R.N. Medication Administered: BUPIVACAINE [INJECTION], Dose: 0.5 % Injectable Injection. Medication Ordered: Bupivacaine Injection 0.5 % (soln) (NOW, place at bedside, with syringes & needles). Given 15:20 11/08/2016 Aixa Basurto R.N. Medication Administered: PERCOCET [PO] (OXYCODONE-ACETAMINOPHEN), Dose: 1 tab 5/325 mg Tablets PO. Medication Ordered: Percocet PO 5/325 mg (HIGH ALERT MEDICATION). Given 16:24 11/08/2016 Susannah Gallego R.N. Medication Administered: DILAUDID [IM] (HYDROMORPHONE HCL PF), Dose: 2 mg IM. Medication Ordered: Dilaudid IM 2 mg (HIGH ALERT MEDICATION, NOW). Given 16:59 11/08/2016 Susannah Gallego R.N. Medication Administered: ZOFRAN ODT [PO] (ONDANSETRON), Dose: 8 mg Oral Disintegrating Tablets PO. Medication Ordered: Zofran ODT PO 8 mg (NOW).
== END 2016-11-08 17:38 | disposition home or self-care (01) ==
LOC: ED SRH 15:01
DX: S91.342A Puncture wound with foreign body, left foot, initial encounter (principal); W45.8XXA Other foreign body or object entering through skin, initial encounter; Y93.K1 Activity, walking an animal; Y99.9 Unspecified external cause status; Y92.830 Public park as the place of occurrence of the external cause; Z88.8 Allergy status to other drugs, medicaments and biological substances; Z79.891 Long term (current) use of opiate analgesic